=== PATIENT | female | born 1985 | race Two or more races ===

== ENCOUNTER 2019-11-12 11:07 | Inpatient (IN) | payer OTHER ==
[~2019-11-12] VITALS: Ht 172.7 cm; Wt 73.5 kg
[2019-12-06] MEDS ORDERED: IRON325 MG PO (07:54)
[2019-12-06] MEDS ORDERED: PRENATAL TABLE1 EAC1 PO (07:54)
== END 2019-12-08 12:41 | disposition home or self-care (01) | DRG 807 ==
LOC: LDR 12-06 07:10 → SURH 12-06 12:45 → SURG-SUITE 12-06 17:56
PROVIDERS: ADMIT Obstetrics & Gynecology; ATTEND Obstetrics & Gynecology
PROC: 10E0XZZ Delivery of Products of Conception, External Approach (ICD-10-PCS; principal; 2019-12-06)
PROC: 10907ZC Drainage of Amniotic Fluid, Therapeutic from Products of Conception, Via Natural or Artificial Opening (ICD-10-PCS; 2019-12-06)
PROC: 0W8NXZZ Division of Female Perineum, External Approach (ICD-10-PCS; 2019-12-06)
PROC: 3E033VJ Introduction of Other Hormone into Peripheral Vein, Percutaneous Approach (ICD-10-PCS; 2019-12-06)
PROC: 4A1HXCZ Monitoring of Products of Conception, Cardiac Rate, External Approach (ICD-10-PCS; 2019-12-06)
DX: O80 Encounter for full-term uncomplicated delivery (principal); Z37.0 Single live birth; Z3A.40 40 weeks gestation of pregnancy; Z20.828 Contact with and (suspected) exposure to other viral communicable diseases

== ENCOUNTER 2022-09-28 15:11 | Emergency (ER) | payer OTHER ==
[~2022-09-28] VITALS: Ht 172.7 cm; Wt 65.8 kg
[~2022-09-28 15:11] MED LIST: IRON325 MG PO; PRENATAL TABLE1 EAC1 PO
== END 2022-09-28 19:36 | disposition home or self-care (01) ==
LOC: ER 15:11
DX: L01.00 Impetigo, unspecified (principal)